=== PATIENT | female | born 1970 | race Caucasian/White ===

== ENCOUNTER → 2017-02-05 | Outpatient (REF) | payer BC ==
[~2017-02-05] MED LIST: ALBU17IN2 INH; CALC600T57 PO; CEFD1CAP8 PO; FLON1SPR; FOLI1TAB2 PO; IBUP200C PO; OMEP20CA3 PO; PERC5TAB6 PO; SING10TA32 PO; VITA100072 PO
[2017-02-05 12:24] LABS: ALBUMIN 3.5 GM/DL (3.2-5.2); ALBUMIN/GLOBULIN RATIO 1.21 (1.00-1.93); ALKALINE PHOSPHATASE 66 U/L (45-117); ALT/SGPT 25 U/L (12-78); ANION GAP 9 MEQ/L (8-16); AST/SGOT 14 U/L (15-37); BILIRUBIN,TOTAL 0.5 MG/DL (0.2-1.0); BLOOD UREA NITROGEN 11 MG/DL (7-18); CALCIUM LEVEL 8.3 MG/DL (8.5-10.1); CARBON DIOXIDE LEVEL 27 MEQ/L (21-32); CHLORIDE LEVEL 107 MEQ/L (98-107); CREATININE FOR GFR 0.71 MG/DL (0.55-1.02); GLOMERULAR FILTRATION RATE > 60.0 (>58); GLUCOSE, FASTING 99 MG/DL (70-105); POTASSIUM SERUM 4.1 MEQ/L (3.5-5.1); SODIUM LEVEL 143 MEQ/L (136-145); TOTAL PROTEIN 6.4 GM/DL (6.4-8.2)
[2017-02-05 12:25] LABS: VITAMIN B12 LEVEL 278 PG/ML (247-911)
[2017-02-05 13:56] LABS: PRETREATED FOLATE FOR RBCFOL 8.9 NG/ML
== END ==
LOC: M LABDRAW1 11:36
PROVIDERS: ATTEND Family Medicine
DX: E55.9 Vitamin D deficiency, unspecified (principal); R73.01 Impaired fasting glucose; E53.8 Deficiency of other specified B group vitamins

== ENCOUNTER → 2017-02-19 | Outpatient (CLI) | payer BC ==
--- NOTE | 2017-02-23 09:35 | SLEEPHOME ---
DATE OF STUDY: 02/19/2017 ORDERING PROVIDER: Juan Weber MD Diagnostic home sleep testing was performed due to concern for the obstructive sleep apnea syndrome. For testing, a NOX-T3 respiratory monitoring device was used. Continuous record was made of pulse, oxygen saturation, airflow, chest and abdominal strain, and body position. 10 hours and 59 minutes of data were reviewed. There were 9 hours and 46 minutes marked as time in bed. During the interval marked time in bed, there were 130 respiratory events identified of 10 seconds in duration or greater for a respiratory event index of 13.3. The events were primarily obstructive. Baseline heart rate 50 beats per minute. Pulse rate ranged 40-96. Baseline saturation was 92%. Lowest oxygen saturation recorded 81%. Testing was performed in both the supine and nonsupine positions. IMPRESSION: Abnormal home sleep test with repetitive respiratory events and oxygen desaturation to 81% with a respiratory event index of 13.3 is consistent with the obstructive sleep apnea syndrome. RECOMMENDATION: The patient should be encouraged to undergo formal sleep evaluation and in-laboratory pressure titration.
== END ==
LOC: M SLEEP HO 07:45
PROVIDERS: ATTEND Family Medicine
DX: G47.33 Obstructive sleep apnea (adult) (pediatric) (principal)

== ENCOUNTER → 2017-09-29 | Outpatient (CLI) | payer BC ==
[~2017-09-29] MED LIST changes: -FOLI1TAB2 PO; +FOLI1TAB4 PO; -IBUP200C PO; +IBUP200C10 PO; +PERC5TAB12 PO; -PERC5TAB6 PO
--- NOTE | 2017-09-29 20:20 | REP ---
Clinical: Thyroid nodule. Comparison: 09/18/2016. Technique: Real time boucher scale and color evaluation using linear high frequency transducer. Findings: Right thyroid lobe measures 4.3 x 1.2 x 1.2 cm and includes 8.7 x 8.2 x 6.8 mm isoechoic mid/lower pole nodule. Left lobe measures 4.2 x 1.2 x 1.1 cm and includes 3.8 x 3.4 x 3.2 mm lower pole hypoechoic nodule. Findings are essentially unchanged from prior examination. Impression: Solitary bilateral thyroid nodules similar to prior examination. Signed by Eduard Ochoa MD 09/29/2017 05:12 P
== END ==
LOC: M RAD 10:01
PROVIDERS: ATTEND Family Medicine
DX: E04.1 Nontoxic single thyroid nodule (principal)

== ENCOUNTER → 2018-02-15 | Outpatient (REF) | payer BC ==
[2018-02-15 10:49] LABS: BASO % 0.4 % (0.0-1.0); EOS # 0.1 10^3/uL (0.0-0.50); EOS % 2.1 % (0.0-3.0); HEMATOCRIT 37.1 % (36.0-47.0); HEMOGLOBIN 12.3 g/dl (12.0-15.5); IMMATURE GRANULOCYTE % 0.4 % (0-3.0); LYMPH # 1.7 10^3/uL (1.5-4.5); LYMPH % 31.5 % (24.0-44.0); MEAN CORPUSCULAR HEMOGLOBIN 30.5 pg (27.0-33.0); MEAN CORPUSCULAR HGB CONC 33.2 g/dl (32.0-36.5); MEAN CORPUSCULAR VOLUME 92.1 fl (80.0-96.0); MONO # 0.3 10^3/uL (0.0-0.8); MONO % 6.5 % (0.0-5.0); NEUTROPHILS # 3.1 10^3/uL (1.8-7.7); NEUTROPHILS % 59.1 % (36.0-66.0); PLATELET COUNT, AUTOMATED 191 10^3/uL (150-450); RED BLOOD COUNT 4.03 10^6/uL (4.00-5.40); RED CELL DISTRIBUTION WIDTH 12.3 % (11.5-14.5); WHITE BLOOD COUNT 5.2 10^3/uL (4.0-10.0)
[2018-02-15 11:11] LABS: ALBUMIN 3.7 GM/DL (3.2-5.2); ALBUMIN/GLOBULIN RATIO 1.23 (1.00-1.93); ALKALINE PHOSPHATASE 67 U/L (45-117); ALT/SGPT 48 U/L (12-78); ANION GAP 4 MEQ/L (8-16); AST/SGOT 67 U/L (7-37); BILIRUBIN,TOTAL 0.3 MG/DL (0.2-1.0); BLOOD UREA NITROGEN 16 MG/DL (7-18); CALCIUM LEVEL 8.7 MG/DL (8.5-10.1); CARBON DIOXIDE LEVEL 28 MEQ/L (21-32); CHLORIDE LEVEL 112 MEQ/L (98-107); CREATININE FOR GFR 0.71 MG/DL (0.55-1.30); FERRITIN 37 NG/ML (8-252); GLOMERULAR FILTRATION RATE > 60.0 (>58); GLUCOSE, FASTING 94 MG/DL (70-100); IRON (FE) 60 UG/DL (50-170); PERCENT SATURATION 21.1 % (13.2-45.0); POTASSIUM SERUM 4.3 MEQ/L (3.5-5.1); SODIUM LEVEL 144 MEQ/L (136-145); TOTAL IRON BINDING CAPACITY 285 UG/DL (250-450); TOTAL PROTEIN 6.7 GM/DL (6.4-8.2)
[2018-02-15 11:37] LABS: PTH INTACT 57.7 PG/ML (18.5-88.0); TOTAL 25(OH) VITAMIN D 100.6 NG/ML (30.0-100.0)
[2018-02-15 14:48] LABS: ESTIMATED AVERAGE GLUCOSE 94 MG/DL (60-110); HEMOGLOBIN A1c 4.9 %
[2018-02-17 00:08] LABS: INSULIN LEVEL 14.1 uIU/mL (2.6-24.9)
[2018-02-17 00:08] LABS: TISSUE TRANSGLUTAMINASE IgA <2 U/mL (0-3)
== END ==
LOC: M LABDRAW1 10:09
DX: E53.8 Deficiency of other specified B group vitamins (principal); E55.9 Vitamin D deficiency, unspecified; R73.01 Impaired fasting glucose
CPT/HCPCS: 83525

== ENCOUNTER → 2018-03-02 | Outpatient (CLI) | payer BC ==
[~2018-03-02] MED LIST changes: -ALBU17IN2 INH; -CALC600T57 PO; -CEFD1CAP8 PO; -FLON1SPR; -FOLI1TAB4 PO; +GASTROGRAFIN SOLUTION 30ML (Q9963) As Ordered; -IBUP200C10 PO; +ISOVUE-370 76% 100ML VIAL (Q9967) As Ordered; -OMEP20CA3 PO; -PERC5TAB12 PO; -SING10TA32 PO; -VITA100072 PO
== END ==
LOC: M RAD 16:31
DX: R10.30 Lower abdominal pain, unspecified (principal)

== ENCOUNTER → 2018-12-09 | Outpatient (CLI) | payer BC ==
[~2018-12-09] MED LIST changes: +ALBU17IN2 INH; +CALC600T57 PO; +CEFD1CAP8 PO; +FLON1SPR; +FOLI1TAB11 PO; -GASTROGRAFIN SOLUTION 30ML (Q9963) As Ordered; +IBUP200C25 PO; -ISOVUE-370 76% 100ML VIAL (Q9967) As Ordered; +OMEP20CA3 PO; +PERC5TAB12 PO; +SING10TA32 PO; +VITA100072 PO
[2018-12-09 07:48] LABS: APPEARANCE, URINE CLEAR (CLEAR); BACTERIA, URINE AUTO NEGATIVE (NEGATIVE); BILIRUBIN, URINE AUTO NEGATIVE (NEGATIVE); BLOOD, URINE BLOOD 2+ (NEGATIVE); COLOR, URINE YELLOW (YELLOW); GLUCOSE, URINE (UA) AUTO NEGATIVE (NEGATIVE); KETONE, URINE AUTO NEGATIVE (NEGATIVE); LEUKOCYTE ESTERASE, URINE AUTO TRACE (NEGATIVE); MUCUS, URINE SMALL (NEGATIVE); NITRITE, URINE AUTO NEGATIVE (NEGATIVE); PROTEIN, URINE AUTO NEGATIVE (NEGATIVE); RBC, URINE AUTO 28 /HPF (0-3); SPECIFIC GRAVITY URINE AUTO 1.015 (1.002-1.035); SQUAMOUS EPITHELIAL CELL UR AU 1 /HPF (0-6); UROBILINOGEN, URINE AUTO 0.2 mg/dL (0.0-2.0); WBC, URINE AUTO 1 /HPF (0-3)
[2018-12-09 07:55] LABS: HEMOGLOBIN A1c 4.9 %
[2018-12-09 08:03] LABS: ALBUMIN 3.8 GM/DL (3.2-5.2); ALT/SGPT 36 U/L (12-78); BILIRUBIN,TOTAL 0.6 MG/DL (0.2-1.0); BLOOD UREA NITROGEN 10 MG/DL (7-18); C REACTIVE PROTEIN QUANTITATIV 1.44 MG/DL (0.00-0.30); CALCIUM LEVEL 8.4 MG/DL (8.5-10.1); CARBON DIOXIDE LEVEL 26 MEQ/L (21-32); CHLORIDE LEVEL 107 MEQ/L (98-107); CHOLESTEROL LEVEL 165 MG/DL (<200); CHOLESTEROL RISK RATIO 2.844 (<5); CREATININE FOR GFR 0.64 MG/DL (0.55-1.30); GLOMERULAR FILTRATION RATE > 60.0 (>58); GLUCOSE, FASTING 95 MG/DL (70-100); HDL CHOLESTEROL 58 MG/DL (>40); LDL CHOLESTEROL 92 MG/DL (<100); NON-HDL-C 107 MG/DL; POTASSIUM SERUM 4.1 MEQ/L (3.5-5.1); SODIUM LEVEL 142 MEQ/L (136-145); TOTAL PROTEIN 7.1 GM/DL (6.4-8.2); TRIGLYCERIDES LEVEL 77 MG/DL (<150)
[2018-12-09 08:20] LABS: CREATININE, URINE 84.9 MG/DL; MALB URINE SIEMENS < 5.0 MG/L; MAU/CREAT RATIO 5.8 MCG/MG (0.0-30.0)
[2018-12-09 09:49] LABS: VITAMIN B12 LEVEL > 2000 PG/ML (247-911)
[2018-12-09 10:54] LABS: HEMATOCRIT 43.8 % (36.0-47.0)
== END ==
LOC: M LAB 06:53
PROVIDERS: ATTEND Family Medicine
DX: E78.5 Hyperlipidemia, unspecified (principal); E53.8 Deficiency of other specified B group vitamins; R73.01 Impaired fasting glucose

== ENCOUNTER 2018-12-30 08:15 | Day surgery (SDC) | payer BC ==
[~2018-12-30] VITALS: Ht 177.8 cm; Wt 105.7 kg
[~2018-12-30 08:15] MED LIST changes: +DICY10CA13 PO; +LIDOCAINE 2% INJ 100 MG/5 ML SDV (FOR ANES.) As Ordered ONE; +LORA-243 PO; +NS 1,000 ML IV ONE; +PROAAER10 INH; +PROBCAP14 PO; +PROPOFOL 200 MG/20 ML VIAL As Ordered ONE; +VITA50005 PO
[2018-12-30] MEDS ORDERED: PROPOFOL 200 MG/20 ML VIAL As Ordered ONE (09:28)
--- NOTE | 2018-12-30 09:50 | ROOR ---
Patient Name: Alta Larson Procedure Date: 12/30/2018 9:05 AM Date of : 1970 Age: 47 Room: [facility] Gender: Female Note Status: Finalized Procedure: Colonoscopy Indications: Screening in patient at increased risk: Family history of 1st-degree relative with colorectal cancer Providers: Yariel Richards MD Referring MD: Juan Weber MD Requesting Provider: Medicines: Monitored Anesthesia Care Complications: No immediate complications. Procedure: Pre-Anesthesia Assessment: - Prior to the procedure, a History and Physical was performed, and patient medications and allergies were reviewed. The patient is competent. The risks and benefits of the procedure and the sedation options and risks were discussed with the patient. All questions were answered and informed consent was obtained. Patient identification and proposed procedure were verified by the physician, the nurse and the anesthesiologist in the procedure room. Mental Status Examination: alert and oriented. Airway Examination: normal oropharyngeal airway and neck mobility. Respiratory Examination: clear to auscultation. CV Examination: normal. Prophylactic Antibiotics: The patient does not require prophylactic antibiotics. Prior Anticoagulants: The patient has taken no previous anticoagulant or antiplatelet agents. ASA Grade Assessment: II - A patient with mild systemic disease. After reviewing the risks and benefits, the patient was deemed in satisfactory condition to undergo the procedure. The anesthesia plan was to use monitored anesthesia care (MAC). Immediately prior to administration of medications, the patient was re-assessed for adequacy to receive sedatives. The heart rate, respiratory rate, oxygen saturations, blood pressure, adequacy of pulmonary ventilation, and response to care were monitored throughout the procedure. The physical status of the patient was re-assessed after the procedure. The Colonoscope was introduced through the anus and advanced to the terminal ileum, with identification of the appendiceal orifice and IC valve. The colonoscopy was performed without difficulty. The patient tolerated the procedure well. The quality of the bowel preparation was adequate to identify polyps 6 mm and larger in size and fair. The terminal ileum, ileocecal valve, appendiceal orifice, and rectum were photographed. Scope insertion time was 4 minutes. Scope withdrawal time was 10 minutes. The total duration of the procedure was 20 minutes. Findings: The perianal and digital rectal examinations were normal. The terminal ileum appeared normal. Two sessile polyps were found in the ascending colon. The polyps were 6 to 8 mm in size. These polyps were removed with a cold snare. Resection and retrieval were complete. Verification of patient identification for the specimen was done by the physician and nurse using the patient's name, date and medical record number. Estimated blood loss was minimal. Three sessile and semi-pedunculated polyps were found in the sigmoid colon. The polyps were 8 to 15 mm in size. These polyps were removed with a hot snare. Resection and retrieval were complete. To close a defect after polypectomy, two hemostatic clips were successfully placed. There was no bleeding at the end of the procedure. A few small-mouthed diverticula were found in the sigmoid colon. External and internal hemorrhoids were found during retroflexion. The hemorrhoids were medium-sized. Impression: - Preparation of the colon was fair. - The examined portion of the ileum was normal. - Two 6 to 8 mm polyps in the ascending colon, removed with a cold snare. Resected and retrieved. - Three 8 to 15 mm polyps in the sigmoid colon, removed with a hot snare. Resected and retrieved. Clips were placed. - Diverticulosis in the sigmoid colon. - External and internal hemorrhoids. Recommendation: - Patient has a contact number available for emergencies. The signs and symptoms of potential delayed complications were discussed with the patient. Return to normal activities tomorrow. Written discharge instructions were provided to the patient. - High fiber diet. - Continue present medications. - Await pathology results. - Repeat colonoscopy in 1 - 3 years for surveillance based on pathology results. - Based on the biopsy results you will receive a phone call from GI clinic in 2-3 weeks to review the pathology results AND/OR your results will be faxed to your Primary care physician. - Return to primary care physician. Yariel Richards MD Yariel Richards MD 12/30/2018 9:49:45 AM This report has been signed electronically. Number of Addenda: 0 Note Initiated On: 12/30/2018 9:05 AM Estimated Blood Loss: Estimated blood loss was minimal.
[2018-12-30 10:05] VITALS: BP 120/82
== END 2018-12-30 11:07 | disposition home or self-care (01) ==
LOC: M OPP 08:15
PROVIDERS: ATTEND Internal Medicine Gastroenterology
DX: Z12.11 Encounter for screening for malignant neoplasm of colon (principal); Z80.0 Family history of malignant neoplasm of digestive organs; K64.8 Other hemorrhoids; D12.2 Benign neoplasm of ascending colon; D12.5 Benign neoplasm of sigmoid colon; K57.30 Diverticulosis of large intestine without perforation or abscess without bleeding; Z88.0 Allergy status to penicillin; Z88.8 Allergy status to other drugs, medicaments and biological substances; G47.30 Sleep apnea, unspecified; Z80.3 Family history of malignant neoplasm of breast; Z83.79 Family history of other diseases of the digestive system

== ENCOUNTER → 2019-03-15 | Outpatient (CLI) | payer BC ==
[~2019-03-15] MED LIST changes: -LIDOCAINE 2% INJ 100 MG/5 ML SDV (FOR ANES.) As Ordered ONE; -NS 1,000 ML IV ONE; -PROPOFOL 200 MG/20 ML VIAL As Ordered ONE; +VITA100018 PO; -VITA100072 PO
--- NOTE | 2019-03-15 08:43 | REP ---
CT INTERNAL AUDITORY CANALS WITHOUT CONTRAST: HISTORY: Left otorrhea. The right internal auditory canal, cochlea, vestibule, and semicircular canals are normal in appearance. There is no carotid canal or jugular bulb dehiscence. The ossicles are normal in configuration and position. The scutum is intact. There are areas of dehiscence in the tegmen. The right middle ear cavity and mastoid air cells are clear. The patient is status post left mastoidectomy. The left internal auditory canal, cochlea, vestibule, and semicircular canals are normal in appearance. There is no carotid canal or jugular bulb dehiscence. A small remnant of the malleus is present. A small amount of soft tissue density is present in the epitympanum. This most likely represents scar tissue. The tegmen is intact. There is opacification of the residual left mastoid air cells. Minimal mucosal thickening is present in the ethmoid and left maxillary sinuses. The nasopharynx is normal in appearance. IMPRESSION: The patient is status post left mastoidectomy. Electronically Signed by Jeremías Nicholson MD 03/15/2019 09:06 A
== END ==
LOC: M RAD 06:50
PROVIDERS: ATTEND Otolaryngology
DX: H92.12 Otorrhea, left ear (principal)

== ENCOUNTER → 2019-03-29 | Outpatient (CLI) | payer BC ==
--- NOTE | 2019-04-02 14:29 | SLEEPHOME ---
DATE OF STUDY: 03/29/2019 ORDERED BY: GRETEL Topete Diagnostic home sleep testing was performed for evaluation of sleep apnea syndrome symptoms. For testing a nocturnal T3 respiratory monitoring device was used. Continuous record was made of pulse, oxygen saturation, airflow, chest and abdominal strain and body position. 9 hours and 30 minutes of data were reviewed. There were 8 hours and 40 minutes marked as time in bed. During the interval marked time in bed there were 50 respiratory events identified of 10 seconds in duration or greater for a respiratory event index of 5.8. The events were primarily obstructive. Baseline pulse rate 63, pulse rate ranged 46-97. Baseline saturation 92% saturations fell as low as 77% and the oxygen desaturation index was elevated 6.9. Testing was performed in both the supine and nonsupine positions. IMPRESSION: Abnormal home sleep testing with repetitive respiratory events and oxygen desaturations to 77% with a respiratory event index of 5.6 is consistent with the obstructive sleep apnea syndrome. RECOMMENDATION: The patient should be encouraged to undergo formal sleep evaluation. cc: Julee Matias PA-C
== END ==
LOC: M SLEEP HO 10:59
PROVIDERS: ATTEND Nurse Practitioner Family
DX: G47.30 Sleep apnea, unspecified (principal)

== ENCOUNTER → 2019-08-18 | Outpatient (CLI) | payer BC ==
[~2019-08-18] MED LIST changes: -OMEP20CA3 PO; +OMEP20CA4 PO
[2019-08-18 08:34] LABS: BASO % 0.4 % (0.0-1.0); EOS # 0.1 10^3/uL (0.0-0.5); EOS % 2.6 % (0.0-3.0); HEMATOCRIT 45.5 % (36.0-47.0); HEMOGLOBIN 14.8 g/dl (12.0-15.5); LYMPH # 1.9 10^3/uL (1.5-5.0); LYMPH % 34.1 % (24.0-44.0); MEAN CORPUSCULAR HEMOGLOBIN 30.8 pg (27.0-33.0); MEAN CORPUSCULAR HGB CONC 32.5 g/dl (32.0-36.5); MEAN CORPUSCULAR VOLUME 94.6 fl (80.0-96.0); MONO # 0.4 10^3/uL (0.0-0.8); MONO % 7.5 % (0.0-5.0); PLATELET COUNT, AUTOMATED 239 10^3/uL (150-450); RED BLOOD COUNT 4.81 10^6/uL (4.00-5.40); WHITE BLOOD COUNT 5.5 10^3/uL (4.0-10.0)
[2019-08-18 09:15] LABS: ALBUMIN 4.2 GM/DL (3.2-5.2); ALT/SGPT 24 U/L (12-78); BILIRUBIN,TOTAL 0.5 MG/DL (0.2-1.0); BLOOD UREA NITROGEN 22 MG/DL (7-18); CALCIUM LEVEL 9.5 MG/DL (8.5-10.1); CARBON DIOXIDE LEVEL 28 MEQ/L (21-32); CHLORIDE LEVEL 109 MEQ/L (98-107); CREATININE FOR GFR 0.76 MG/DL (0.55-1.30); FREE T4 0.94 NG/DL (0.76-1.46); GLOMERULAR FILTRATION RATE > 60.0 (>58); GLUCOSE, FASTING 88 MG/DL (70-100); POTASSIUM SERUM 4.7 MEQ/L (3.5-5.1); SODIUM LEVEL 142 MEQ/L (136-145); TOTAL PROTEIN 7.6 GM/DL (6.4-8.2)
[2019-08-18 10:34] LABS: TOTAL 25(OH) VITAMIN D 99.1 NG/ML (30.0-100.0)
== END ==
LOC: M LAB 07:19
PROVIDERS: ATTEND Family Medicine
DX: E55.9 Vitamin D deficiency, unspecified (principal); R73.01 Impaired fasting glucose; E04.1 Nontoxic single thyroid nodule

== ENCOUNTER → 2019-08-25 | Outpatient (CLI) | payer BC ==
--- NOTE | 2019-08-25 10:30 | REP ---
THYROID SONOGRAPHY: HISTORY: Thyroid nodule. COMPARISON SONOGRAPHY: September 29, 2017 SONOGRAPHIC FINDINGS: Thyroid isthmus is 0.4 cm thick. Sonographic dimensions of the right thyroid lobe are 4.6 x 1.2 x 1.4 cm. Left lobe dimensions are 4.4 x 1.4 x 1.2 cm. There is a complex essentially isoechoic nodule in the lower pole on the right measuring 1.1 x 0.9 x 0.9 cm. This is only slightly larger than measurements on September 29, 2017. A hypoechoic 0.5 cm nodule is seen in the lower pole on the left. This is essentially unchanged. No new nodule is seen. IMPRESSION: Small bilateral nodules, one on each side, as above. The right nodule is only very slightly larger than on the 2017 study. Electronically Signed by Jon Villanueva MD 08/25/2019 11:08 A
== END ==
LOC: M RAD 08:04
PROVIDERS: ATTEND Family Medicine
DX: E04.2 Nontoxic multinodular goiter (principal)

== ENCOUNTER → 2020-06-02 | Outpatient (CLI) | payer BC ==
[~2020-06-02] MED LIST changes: +OMEP1CAP73 PO; -OMEP20CA4 PO
== END ==
LOC: M LABSMTC 08:45
PROVIDERS: ATTEND Anesthesiology
DX: Z11.59 Encounter for screening for other viral diseases (principal)

== ENCOUNTER 2020-06-07 08:27 | Day surgery (SDC) | payer OTHER ==
[~2020-06-07] VITALS: Ht 177.8 cm; Wt 109.8 kg
[~2020-06-07 08:27] MED LIST changes: +NS 1,000 ML IV SCH
[2020-06-07] MEDS ORDERED: LIDOCAINE 2% 100MG/5ML SDV (FOR ANES.) As Ordered ONE (11:18)
[2020-06-07] MEDS ORDERED: propofoL 500 MG/50 ML VIAL As Ordered ONE (11:18)
[2020-06-07 11:50] VITALS: BP 113/67
--- NOTE | 2020-06-19 11:30 | ROOR ---
Patient Name: Alta Larson Procedure Date: 06/07/2020 7:46 AM Date of : 1970 Age: 49 Room: [facility] Gender: Female Note Status: Finalized Procedure: Colonoscopy Indications: High risk colon cancer surveillance: Personal history of colonic polyps Providers: Yariel Richards MD Referring MD: Juan Weber MD Requesting Provider: Medicines: Monitored Anesthesia Care Complications: No immediate complications. Procedure: Pre-Anesthesia Assessment: - Prior to the procedure, a History and Physical was performed, and patient medications and allergies were reviewed. The patient is competent. The risks and benefits of the procedure and the sedation options and risks were discussed with the patient. All questions were answered and informed consent was obtained. Patient identification and proposed procedure were verified by the physician, the nurse and the anesthesiologist in the procedure room. Mental Status Examination: alert and oriented. Airway Examination: normal oropharyngeal airway and neck mobility. Respiratory Examination: clear to auscultation. CV Examination: normal. Prophylactic Antibiotics: The patient does not require prophylactic antibiotics. Prior Anticoagulants: The patient has taken no previous anticoagulant or antiplatelet agents. ASA Grade Assessment: II - A patient with mild systemic disease. After reviewing the risks and benefits, the patient was deemed in satisfactory condition to undergo the procedure. The anesthesia plan was to use monitored anesthesia care (MAC). Immediately prior to administration of medications, the patient was re-assessed for adequacy to receive sedatives. The heart rate, respiratory rate, oxygen saturations, blood pressure, adequacy of pulmonary ventilation, and response to care were monitored throughout the procedure. The physical status of the patient was re-assessed after the procedure. The Colonoscope was introduced through the anus and advanced to the terminal ileum, with identification of the appendiceal orifice and IC valve. The colonoscopy was performed without difficulty. The patient tolerated the procedure well. The quality of the bowel preparation was good. The terminal ileum, ileocecal valve, appendiceal orifice, and rectum were photographed. Scope insertion time was 3 minutes. Scope withdrawal time was 9 minutes. The total duration of the procedure was 12 minutes. Findings: The perianal and digital rectal examinations were normal. The terminal ileum appeared normal. A few small and large-mouthed diverticula were found from sigmoid to descending colon. There was no evidence of diverticular bleeding. Non-bleeding external and internal hemorrhoids were found during retroflexion. The hemorrhoids were medium-sized. There is no endoscopic evidence of polyps in the entire colon. Impression: - The examined portion of the ileum was normal. - Moderate diverticulosis from sigmoid to descending colon. There was no evidence of diverticular bleeding. - Non-bleeding external and internal hemorrhoids. - No specimens collected. Recommendation: - Patient has a contact number available for emergencies. The signs and symptoms of potential delayed complications were discussed with the patient. Return to normal activities tomorrow. Written discharge instructions were provided to the patient. - High fiber diet. - Continue present medications. - Use fiber, for example Citrucel, Fibercon, Konsyl or Metamucil. - Repeat colonoscopy in 5 years due to personal history of colon polyps in past Colonoscopy. - Return to GI clinic in 5 years. - Return to primary care physician. Yariel Richards MD Yariel Richards MD 06/07/2020 11:35:45 AM Number of Addenda: 0 Note Initiated On: 06/07/2020 7:46 AM Estimated Blood Loss: Estimated blood loss was minimal.
== END 2020-06-07 12:00 | disposition home or self-care (01) ==
LOC: M OPP 08:27
PROVIDERS: ATTEND Internal Medicine Gastroenterology
DX: Z12.11 Encounter for screening for malignant neoplasm of colon (principal); Z86.010 Personal history of colon polyps; K64.8 Other hemorrhoids; K57.30 Diverticulosis of large intestine without perforation or abscess without bleeding; G47.30 Sleep apnea, unspecified; K21.9 Gastro-esophageal reflux disease without esophagitis; Z83.79 Family history of other diseases of the digestive system; Z88.0 Allergy status to penicillin

== ENCOUNTER → 2020-10-30 | Outpatient (CLI) | payer OTHER ==
[~2020-10-30] MED LIST changes: -NS 1,000 ML IV SCH
--- NOTE | 2020-10-31 10:44 | REP ---
INDICATION: THYROID NODULE COMPARISON: 08/25/2019 TECHNIQUE: [place] scale and color evaluation of the thyroid gland using the linear high frequency transducer. FINDINGS: The thyroid gland is normal in contour, shape, size, and echogenicity. No nodule/mass or cystic abnormalities are appreciated. Right thyroid lobe measures 4.8 x 1.4 x 1.4 cm and includes 1.5 x 1.2 x 1.3 cm complex primarily isodense midpole nodule.. Isthmus measures 3.0 mm in width. Left thyroid lobe measures 4.7 x 1.4 x 1.1 cm and includes 5.4 x 5.1 x 8.6 mm hypoechoic lower pole nodule. IMPRESSION: Bilateral nodules as described above are similar in morphology to prior examination with minimal increased size suggested. <Electronically signed by Eduard Ochoa > 10/31/20 [id number]
== END ==
LOC: M RAD 15:16
PROVIDERS: ATTEND Family Medicine
DX: E04.2 Nontoxic multinodular goiter (principal)

== ENCOUNTER → 2021-03-19 | Outpatient (REF) | payer OTHER ==
[2021-03-19 12:06] LABS: BASO % 0.5 % (0.0-1.0); EOS # 0.2 10^3/uL (0.0-0.5); EOS % 2.8 % (0.0-3.0); HEMATOCRIT 40.5 % (36.0-47.0); HEMOGLOBIN 13.5 g/dl (12.0-15.5); LYMPH # 1.6 10^3/uL (1.5-5.0); LYMPH % 28.1 % (24.0-44.0); MEAN CORPUSCULAR HEMOGLOBIN 29.9 pg (27.0-33.0); MEAN CORPUSCULAR HGB CONC 33.3 g/dl (32.0-36.5); MEAN CORPUSCULAR VOLUME 89.6 fl (80.0-96.0); MONO # 0.5 10^3/uL (0.0-0.8); MONO % 8.1 % (2.0-8.0); NEUTROPHILS # 3.4 10^3/uL (1.5-8.5); NEUTROPHILS % 60.1 % (36.0-66.0); PLATELET COUNT, AUTOMATED 242 10^3/uL (150-450); RED BLOOD COUNT 4.52 10^6/uL (4.00-5.40); WHITE BLOOD COUNT 5.7 10^3/uL (4.0-10.0)
[2021-03-19 12:07] LABS: HEMATOCRIT 40.2 % (36.0-47.0)
[2021-03-19 18:40] LABS: ALBUMIN 3.7 GM/DL (3.2-5.2); ALT/SGPT 31 U/L (12-78); BILIRUBIN,TOTAL 0.5 MG/DL (0.2-1.0); BLOOD UREA NITROGEN 14 MG/DL (7-18); C REACTIVE PROTEIN QUANTITATIV 0.48 MG/DL (0.00-0.30); CALCIUM LEVEL 8.7 MG/DL (8.5-10.1); CARBON DIOXIDE LEVEL 27 MEQ/L (21-32); CHLORIDE LEVEL 108 MEQ/L (98-107); CHOLESTEROL LEVEL 193 MG/DL (<200); CREATININE FOR GFR 0.67 MG/DL (0.55-1.30); GLOMERULAR FILTRATION RATE > 60.0 (>51); GLUCOSE, FASTING 89 MG/DL (70-100); HDL CHOLESTEROL 48 MG/DL (>40); LDL CHOLESTEROL 121 MG/DL (<100); NON-HDL-C 145 MG/DL; POTASSIUM SERUM 3.8 MEQ/L (3.5-5.1); SODIUM LEVEL 144 MEQ/L (136-145); TOTAL 25(OH) VITAMIN D 57.7 NG/ML (30.0-100.0); TOTAL PROTEIN 6.9 GM/DL (6.4-8.2); TRIGLYCERIDES LEVEL 120 MG/DL (<150)
[2021-03-19 18:41] LABS: PTH INTACT 64.3 PG/ML (18.5-88.0); VITAMIN B12 LEVEL 1113 PG/ML (247-911)
[2021-03-19 19:23] LABS: MALB URINE SIEMENS 11.9 MG/L; MAU/CREAT RATIO 5.7 MCG/MG (0.0-30.0)
[2021-03-20 11:52] LABS: ALBUMIN 4.11 GM/DL (3.29-5.55); ALBUMIN % 59.6 % (55.8-66.1); ALPHA-1-GLOBULIN % 4.4 % (2.9-4.9); ALPHA-2-GLOBULINS 0.88 GM/DL (0.42-0.99); ALPHA-2-GLOBULINS % 12.8 % (7.1-11.8); BETA-1-GLOBULINS % 5.8 % (4.7-7.2); BETA-2-GLOBULINS % 5.8 % (3.2-6.5); GAMMA GLOBULIN % 11.6 % (11.1-18.8)
[2021-03-21 00:08] LABS: ANA (HEP2) Negative (.); CYCLIC CITRULLINATED PEPTIDE 5 units (0-19); INSULIN LEVEL 13.2 uIU/mL (2.6-24.9)
== END ==
LOC: M SFHCPLAZ 07:55
PROVIDERS: ATTEND Family Medicine
DX: E78.5 Hyperlipidemia, unspecified (principal); E53.8 Deficiency of other specified B group vitamins; E55.9 Vitamin D deficiency, unspecified; R73.01 Impaired fasting glucose; M17.0 Bilateral primary osteoarthritis of knee

== ENCOUNTER → 2021-08-04 | Outpatient (CLI) | payer OTHER ==
[2021-08-04 09:21] LABS: BASO % 0.5 % (0.0-1.0); EOS # 0.2 10^3/uL (0.0-0.5); EOS % 2.7 % (0.0-3.0); HEMATOCRIT 36.9 % (36.0-47.0); HEMOGLOBIN 12.1 g/dl (12.0-15.5); LYMPH # 1.9 10^3/uL (1.5-5.0); LYMPH % 32.8 % (24.0-44.0); MEAN CORPUSCULAR HEMOGLOBIN 29.5 pg (27.0-33.0); MEAN CORPUSCULAR HGB CONC 32.8 g/dl (32.0-36.5); MONO # 0.5 10^3/uL (0.0-0.8); MONO % 7.9 % (2.0-8.0); NEUTROPHILS # 3.3 10^3/uL (1.5-8.5); NEUTROPHILS % 55.8 % (36.0-66.0); PLATELET COUNT, AUTOMATED 225 10^3/uL (150-450); WHITE BLOOD COUNT 5.9 10^3/uL (4.0-10.0)
[2021-08-04 09:57] LABS: ALBUMIN 3.4 GM/DL (3.2-5.2); ALT/SGPT 27 U/L (12-78); BILIRUBIN,TOTAL 0.3 MG/DL (0.2-1.0); BLOOD UREA NITROGEN 16 MG/DL (7-18); CARBON DIOXIDE LEVEL 27 MEQ/L (21-32); CHLORIDE LEVEL 112 MEQ/L (98-107); FREE T4 0.96 NG/DL (0.76-1.46); GLOMERULAR FILTRATION RATE > 60.0 (>51); GLUCOSE, FASTING 96 MG/DL (70-100); POTASSIUM SERUM 4.3 MEQ/L (3.5-5.1); SODIUM LEVEL 144 MEQ/L (136-145); THYROID PEROXIDASE ANTIBODY < 28.0 U/ML (<60.0); TOTAL PROTEIN 6.6 GM/DL (6.4-8.2)
[2021-08-04 10:22] LABS: HEMOGLOBIN A1c 5.3 %
[2021-08-04 10:36] LABS: VITAMIN B12 LEVEL 492 PG/ML (247-911)
[2021-08-06 10:25] LABS: ALBUMIN 3.88 GM/DL (3.29-5.55); ALBUMIN % 58.8 % (55.8-66.1); ALPHA-1-GLOBULIN % 4.5 % (2.9-4.9); ALPHA-2-GLOBULINS 0.81 GM/DL (0.42-0.99); ALPHA-2-GLOBULINS % 12.3 % (7.1-11.8)
[2021-08-06 10:26] LABS: BETA-1-GLOBULINS 0.36 GM/DL (0.28-0.60); BETA-1-GLOBULINS % 5.4 % (4.7-7.2); GAMMA GLOBULINS 0.86 GM/DL (0.65-1.58)
== END ==
LOC: M LAB 07:11
PROVIDERS: ATTEND Family Medicine
DX: E04.1 Nontoxic single thyroid nodule (principal); R73.01 Impaired fasting glucose; E53.8 Deficiency of other specified B group vitamins

== ENCOUNTER → 2021-11-21 | Outpatient (CLI) | payer OTHER ==
[~2021-11-21] MED LIST changes: -CEFD1CAP8 PO; +CEFD300C41 PO
== END ==
LOC: M WHC 07:42
PROVIDERS: ATTEND Family Medicine
DX: E28.39 Other primary ovarian failure (principal); M85.88 Other specified disorders of bone density and structure, other site; M85.851 Other specified disorders of bone density and structure, right thigh; M85.852 Other specified disorders of bone density and structure, left thigh

== ENCOUNTER → 2022-02-25 | Outpatient (CLI) | payer OTHER ==
[2022-02-25 10:58] LABS: BASO % 0.3 % (0.0-1.0); EOS # 0.1 10^3/uL (0.0-0.5); EOS % 1.2 % (0.0-3.0); HEMATOCRIT 39.8 % (36.0-47.0); LYMPH # 1.8 10^3/uL (1.5-5.0); LYMPH % 31.6 % (24.0-44.0); MEAN CORPUSCULAR HEMOGLOBIN 29.2 pg (27.0-33.0); MEAN CORPUSCULAR HGB CONC 32.7 g/dl (32.0-36.5); MEAN CORPUSCULAR VOLUME 89.4 fl (80.0-96.0); MONO # 0.4 10^3/uL (0.0-0.8); MONO % 7.7 % (2.0-8.0); NEUTROPHILS # 3.4 10^3/uL (1.5-8.5); NEUTROPHILS % 58.9 % (36.0-66.0); PLATELET COUNT, AUTOMATED 232 10^3/uL (150-450); RED BLOOD COUNT 4.45 10^6/uL (4.00-5.40); WHITE BLOOD COUNT 5.7 10^3/uL (4.0-10.0)
[2022-02-25 11:06] LABS: ALBUMIN 3.7 GM/DL (3.2-5.2); ALT/SGPT 34 U/L (12-78); BILIRUBIN,TOTAL 0.5 MG/DL (0.2-1.0); BLOOD UREA NITROGEN 12 MG/DL (7-18); C REACTIVE PROTEIN QUANTITATIV 0.91 MG/DL (0.00-0.30); CALCIUM LEVEL 9.2 MG/DL (8.5-10.1); CARBON DIOXIDE LEVEL 29 MEQ/L (21-32); CHLORIDE LEVEL 111 MEQ/L (98-107); CHOLESTEROL LEVEL 209 MG/DL (<200); CHOLESTEROL RISK RATIO 4.265 (<5); CREATININE FOR GFR 0.78 MG/DL (0.55-1.30); FERRITIN 49 NG/ML (8-252); GLOMERULAR FILTRATION RATE > 60.0 (>51); GLUCOSE, FASTING 108 MG/DL (70-100); HDL CHOLESTEROL 49 MG/DL (>40); LDL CHOLESTEROL 136 MG/DL (<100); NON-HDL-C 160 MG/DL; POTASSIUM SERUM 4.6 MEQ/L (3.5-5.1); SODIUM LEVEL 145 MEQ/L (136-145); TRIGLYCERIDES LEVEL 119 MG/DL (<150)
[2022-02-25 11:29] LABS: HEMOGLOBIN A1c 5.2 %
== END ==
LOC: M PLALAB 06:54
PROVIDERS: ATTEND Family Medicine
DX: R73.01 Impaired fasting glucose (principal); E78.5 Hyperlipidemia, unspecified; D53.8 Other specified nutritional anemias

== ENCOUNTER → 2022-02-27 | Outpatient (CLI) | payer OTHER | LOC: M PLAIMG 11:14 → M PLALAB 11:14 | PROVIDERS: ATTEND Family Medicine | DX: M15.9 Polyosteoarthritis, unspecified (principal) ==

== ENCOUNTER → 2022-05-01 | Outpatient (CLI) | payer OTHER ==
[2022-05-01 11:34] LABS: C REACTIVE PROTEIN QUANTITATIV 1.02 MG/DL (0.00-0.30); RHEUMATOID FACTOR QUANT < 10.0 IU/ML (<15.0)
[2022-05-05 00:07] LABS: ANA (HEP2) Negative (.); CYCLIC CITRULLINATED PEPTIDE 7 units (0-19)
== END ==
LOC: M PLALAB 07:19
PROVIDERS: ATTEND Family Medicine
DX: M15.9 Polyosteoarthritis, unspecified (principal)

== ENCOUNTER → 2022-06-25 | Outpatient (CLI) | payer OTHER ==
[2022-06-25 17:26] LABS: HEMATOCRIT 41.8 % (36.0-47.0)
[2022-06-25 18:24] LABS: ALBUMIN 3.9 GM/DL (3.2-5.2); ALT/SGPT 48 U/L (12-78); BILIRUBIN,TOTAL 0.5 MG/DL (0.2-1.0); BLOOD UREA NITROGEN 11 MG/DL (7-18); CALCIUM LEVEL 9.3 MG/DL (8.5-10.1); CARBON DIOXIDE LEVEL 27 MEQ/L (21-32); CHLORIDE LEVEL 108 MEQ/L (98-107); CREATININE FOR GFR 0.67 MG/DL (0.55-1.30); GLOMERULAR FILTRATION RATE > 60.0 (>51); GLUCOSE, FASTING 97 MG/DL (70-100); POTASSIUM SERUM 4.5 MEQ/L (3.5-5.1); SODIUM LEVEL 139 MEQ/L (136-145); TOTAL PROTEIN 7.3 GM/DL (6.4-8.2)
[2022-06-25 18:46] LABS: HEMOGLOBIN A1c 5.4 %
[2022-06-25 18:59] LABS: TOTAL 25(OH) VITAMIN D 80.1 NG/ML (30.0-100.0)
[2022-06-25 19:00] LABS: PTH INTACT 72.1 PG/ML (18.5-88.0); VITAMIN B12 LEVEL 689 PG/ML (247-911)
[2022-06-27 12:08] LABS: H PYLORI SERUM QUANT IgG ABY 0.25 (0.00-0.79); INSULIN LEVEL 28.2 uIU/mL (2.6-24.9)
[2022-06-30 15:34] LABS: NT-PRO BNP 27 PG/ML (<125)
== END ==
LOC: M PLALAB 15:47
PROVIDERS: ATTEND Advanced Practice Midwife
DX: R73.01 Impaired fasting glucose (principal); K21.9 Gastro-esophageal reflux disease without esophagitis; E53.8 Deficiency of other specified B group vitamins; E55.9 Vitamin D deficiency, unspecified

== ENCOUNTER → 2022-08-27 | Outpatient (CLI) | payer OTHER ==
[2022-08-27 16:57] LABS: FOLLICLE STIMULATING HORMONE 41.1 mIU/ML; FREE T4 1.02 NG/DL (0.89-1.76); LUTEINIZING HORMONE 21.7 mIU/ML; THYROID STIMULATING HORMONE 1.301 uIU/ML (0.55-4.78)
== END ==
LOC: M PLALAB 09:26
PROVIDERS: ATTEND Physician Assistant
DX: R73.01 Impaired fasting glucose (principal); R23.2 Flushing; R53.83 Other fatigue

== ENCOUNTER → 2022-11-10 | Outpatient (REF) | payer OTHER ==
[2022-11-10 22:41] LABS: APPEARANCE, URINE MANUAL CLEAR (CLEAR); BILIRUBIN, URINE MANUAL NEGATIVE (NEGATIVE); BLOOD URINE MANUAL NEGATIVE (NEGATIVE); COLOR, URINE MANUAL YELLOW (YELLOW); GLUCOSE, URINE (UA) MANUAL NEGATIVE (NEGATIVE); KETONE, URINE MANUAL NEGATIVE (NEGATIVE); LEUKOCYTE ESTERASE, URINE MAN NEGATIVE (NEGATIVE); NITRITE, URINE MANUAL NEGATIVE (NEGATIVE); PROTEIN, URINE MANUAL NEGATIVE (NEGATIVE); UROBILINOGEN, URINE MANUAL NORMAL (NORMAL)
== END ==
LOC: M LAB REF 22:18
PROVIDERS: ATTEND Physician Assistant Medical
DX: N39.0 Urinary tract infection, site not specified (principal)

== ENCOUNTER → 2022-12-18 | Outpatient (CLI) | payer OTHER ==
[~2022-12-18] MED LIST changes: +MONT-5 PO; -SING10TA32 PO
[2022-12-18 11:45] LABS: CREATININE, URINE 120.4 MG/DL; MAU/CREAT RATIO 4.1 MCG/MG (0.0-30.0)
[2022-12-18 11:46] LABS: ALBUMIN 3.6 G/DL (3.2-5.2); ALKALINE PHOSPHATASE 76 U/L (46-116); ALT/SGPT 25 U/L (7.0-40); AST/SGOT 20 U/L (<34); BILIRUBIN,TOTAL 0.3 MG/DL (0.3-1.2); BLOOD UREA NITROGEN 14 MG/DL (9-23); CALCIUM LEVEL 8.7 MG/DL (8.5-10.1); CARBON DIOXIDE LEVEL 26 MMOL/L (20-31); CHLORIDE LEVEL 111 MMOL/L (98-107); CHOLESTEROL LEVEL 128 MG/DL (<200); CHOLESTEROL RISK RATIO 3.46 (<5); CREATININE FOR GFR 0.55 MG/DL (0.55-1.30); GLOMERULAR FILTRATION RATE > 60.0 (>51); GLUCOSE, FASTING 88 MG/DL (60-100); HDL CHOLESTEROL 36.9 MG/DL (>40); LDL CHOLESTEROL 78.3 MG/DL (<100); NON-HDL-C 91.1 MG/DL; POTASSIUM SERUM 3.9 MMOL/L (3.5-5.1); SODIUM LEVEL 143 MMOL/L (136-145); TOTAL PROTEIN 6.3 G/DL (5.7-8.2); TRIGLYCERIDES LEVEL 64 MG/DL (<150)
[2022-12-19 08:09] LABS: APOLIPOPROTEIN B/A-1 RATIO 0.7 ratio (0.0-0.6); INSULIN LEVEL 13.9 uIU/mL (2.6-24.9)
== END ==
LOC: M PLALAB 07:30
PROVIDERS: ATTEND Family Medicine
DX: R73.01 Impaired fasting glucose (principal)

== ENCOUNTER → 2023-01-25 | Outpatient (CLI) | payer OTHER | LOC: M RAD 15:57 | PROVIDERS: ATTEND Family Medicine | DX: E04.2 Nontoxic multinodular goiter (principal) ==

== ENCOUNTER → 2023-02-05 | Outpatient (CLI) | payer OTHER ==
[2023-02-05 17:27] LABS: BASO % 0.4 % (0.0-1.0); EOS # 0.2 10^3/uL (0.0-0.5); EOS % 2.7 % (0.0-3.0); HEMATOCRIT 42.9 % (36.0-47.0); HEMOGLOBIN 14.1 g/dl (12.0-15.5); LYMPH # 2.9 10^3/uL (1.5-5.0); LYMPH % 32.1 % (24.0-44.0); MEAN CORPUSCULAR HEMOGLOBIN 29.6 pg (27.0-33.0); MEAN CORPUSCULAR HGB CONC 32.9 g/dl (32.0-36.5); MEAN CORPUSCULAR VOLUME 89.9 fl (80.0-96.0); MONO # 0.6 10^3/uL (0.0-0.8); MONO % 7.2 % (2.0-8.0); NEUTROPHILS # 5.1 10^3/uL (1.5-8.5); NEUTROPHILS % 57.4 % (36.0-66.0); PLATELET COUNT, AUTOMATED 264 10^3/uL (150-450); RED BLOOD COUNT 4.77 10^6/uL (4.00-5.40); WHITE BLOOD COUNT 8.9 10^3/uL (4.0-10.0)
[2023-02-05 17:54] LABS: ALBUMIN 3.9 G/DL (3.2-5.2); ALKALINE PHOSPHATASE 86 U/L (46-116); ALT/SGPT 38 U/L (7.0-40); AST/SGOT 24 U/L (<34); BILIRUBIN,TOTAL 0.4 MG/DL (0.3-1.2); BLOOD UREA NITROGEN 20 MG/DL (9-23); CALCIUM LEVEL 9.5 MG/DL (8.5-10.1); CARBON DIOXIDE LEVEL 26 MMOL/L (20-31); CHLORIDE LEVEL 106 MMOL/L (98-107); CREATININE FOR GFR 0.69 MG/DL (0.55-1.30); FERRITIN 34.5 NG/ML (7.3-270.7); FOLATE > 24.00 NG/ML (>5.4); GLOMERULAR FILTRATION RATE > 60.0 (>51); GLUCOSE, FASTING 95 MG/DL (60-100); MAGNESIUM LEVEL 1.6 MG/DL (1.8-2.4); POTASSIUM SERUM 4.4 MMOL/L (3.5-5.1); SODIUM LEVEL 141 MMOL/L (136-145); TOTAL PROTEIN 7.3 G/DL (5.7-8.2)
[2023-02-05 17:55] LABS: TOTAL 25(OH) VITAMIN D 96.2 NG/ML (20.0-100.0)
[2023-02-05 17:56] LABS: VITAMIN B12 LEVEL 757 PG/ML (211-911)
== END ==
LOC: M PLALAB 16:42
PROVIDERS: ATTEND Physician Assistant
DX: E53.8 Deficiency of other specified B group vitamins (principal); E55.9 Vitamin D deficiency, unspecified; R20.0 Anesthesia of skin

== ENCOUNTER → 2023-03-24 | Outpatient (REF) | payer OTHER ==
[2023-03-24 12:48] LABS: APPEARANCE, URINE CLEAR (CLEAR); BACTERIA, URINE AUTO NEGATIVE (NEGATIVE); BILIRUBIN, URINE AUTO NEGATIVE (NEGATIVE); BLOOD, URINE BLOOD 2+ (NEGATIVE); COLOR, URINE AMBER (YELLOW); GLUCOSE, URINE (UA) AUTO NEGATIVE (NEGATIVE); KETONE, URINE AUTO NEGATIVE (NEGATIVE); LEUKOCYTE ESTERASE, URINE AUTO 2+ (NEGATIVE); NITRITE, URINE AUTO POSITIVE (NEGATIVE); PROTEIN, URINE AUTO NEGATIVE (NEGATIVE); RBC, URINE AUTO 1 /HPF (0-3); SPECIFIC GRAVITY URINE AUTO 1.004 (1.002-1.035); SQUAMOUS EPITHELIAL CELL UR AU 0 /HPF (0-6); WBC, URINE AUTO 95 /HPF (0-3)
== END ==
LOC: M LAB REF 12:04
PROVIDERS: ATTEND Physician Assistant
DX: N39.0 Urinary tract infection, site not specified (principal)

== ENCOUNTER → 2023-04-16 | Outpatient (REF) | payer OTHER ==
[2023-04-16 13:12] LABS: APPEARANCE, URINE CLOUDY (CLEAR); BACTERIA, URINE AUTO NEGATIVE (NEGATIVE); BILIRUBIN, URINE AUTO NEGATIVE (NEGATIVE); BLOOD, URINE BLOOD 3+ (NEGATIVE); COLOR, URINE YELLOW (YELLOW); GLUCOSE, URINE (UA) AUTO NEGATIVE (NEGATIVE); KETONE, URINE AUTO NEGATIVE (NEGATIVE); LEUKOCYTE ESTERASE, URINE AUTO 3+ (NEGATIVE); NITRITE, URINE AUTO NEGATIVE (NEGATIVE); PROTEIN, URINE AUTO 1+ mg/dL (NEGATIVE); RBC, URINE AUTO 167 /HPF (0-3); SPECIFIC GRAVITY URINE AUTO 1.011 (1.002-1.035); SQUAMOUS EPITHELIAL CELL UR AU 0 /HPF (0-6); UROBILINOGEN, URINE AUTO 0.2 mg/dL (0.0-2.0); WBC, URINE AUTO TNTC /HPF (0-3)
== END ==
LOC: M LAB REF 12:22
PROVIDERS: ATTEND Physician Assistant
DX: N39.0 Urinary tract infection, site not specified (principal)

== ENCOUNTER → 2023-04-19 | Outpatient (CLI) | payer OTHER ==
[~2023-04-19] MED LIST changes: +DICY-61 PO; -DICY10CA13 PO
[2023-04-19 14:50] LABS: BASO % 0.6 % (0.0-1.0); EOS # 0.2 10^3/uL (0.0-0.5); EOS % 3.7 % (0.0-3.0); HEMATOCRIT 38.6 % (36.0-47.0); HEMOGLOBIN 12.6 g/dl (12.0-15.5); LYMPH # 1.5 10^3/uL (1.5-5.0); LYMPH % 28.3 % (24.0-44.0); MEAN CORPUSCULAR HEMOGLOBIN 29.4 pg (27.0-33.0); MEAN CORPUSCULAR HGB CONC 32.6 g/dl (32.0-36.5); MONO # 0.5 10^3/uL (0.0-0.8); MONO % 9.6 % (2.0-8.0); NEUTROPHILS # 2.9 10^3/uL (1.5-8.5); PLATELET COUNT, AUTOMATED 204 10^3/uL (150-450); RED BLOOD COUNT 4.29 10^6/uL (4.00-5.40); WHITE BLOOD COUNT 5.1 10^3/uL (4.0-10.0)
[2023-04-19 15:02] LABS: APPEARANCE, URINE CLEAR (CLEAR); BACTERIA, URINE AUTO NEGATIVE (NEGATIVE); BILIRUBIN, URINE AUTO NEGATIVE (NEGATIVE); BLOOD, URINE BLOOD NEGATIVE (NEGATIVE); COLOR, URINE YELLOW (YELLOW); GLUCOSE, URINE (UA) AUTO NEGATIVE (NEGATIVE); KETONE, URINE AUTO NEGATIVE (NEGATIVE); LEUKOCYTE ESTERASE, URINE AUTO NEGATIVE (NEGATIVE); MUCUS, URINE SMALL (NEGATIVE); NITRITE, URINE AUTO NEGATIVE (NEGATIVE); PROTEIN, URINE AUTO NEGATIVE (NEGATIVE); RBC, URINE AUTO 0 /HPF (0-3); SPECIFIC GRAVITY URINE AUTO 1.015 (1.002-1.035); SQUAMOUS EPITHELIAL CELL UR AU 0 /HPF (0-6); WBC, URINE AUTO 2 /HPF (0-3)
[2023-04-20 14:11] LABS: TISSUE TRANSGLUTAMINASE IgA <2 U/mL (0-3)
== END ==
LOC: M PLALAB 11:24
PROVIDERS: ATTEND Family Medicine
DX: D50.9 Iron deficiency anemia, unspecified (principal); N39.0 Urinary tract infection, site not specified

== ENCOUNTER → 2023-05-25 | Outpatient (REF) | payer OTHER | LOC: M SFHCPLAZ 14:05 | PROVIDERS: ATTEND Family Medicine | DX: N30.00 Acute cystitis without hematuria (principal) ==

== ENCOUNTER → 2023-06-29 | Outpatient (REF) | payer OTHER ==
[2023-06-29 20:33] LABS: APPEARANCE, URINE HAZY (CLEAR); BACTERIA, URINE AUTO NEGATIVE (NEGATIVE); BILIRUBIN, URINE AUTO NEGATIVE (NEGATIVE); BLOOD, URINE BLOOD 2+ (NEGATIVE); COLOR, URINE STRAW (YELLOW); GLUCOSE, URINE (UA) AUTO NEGATIVE (NEGATIVE); KETONE, URINE AUTO NEGATIVE (NEGATIVE); LEUKOCYTE ESTERASE, URINE AUTO 3+ (NEGATIVE); NITRITE, URINE AUTO NEGATIVE (NEGATIVE); PROTEIN, URINE AUTO NEGATIVE (NEGATIVE); RBC, URINE AUTO 6 /HPF (0-3); SPECIFIC GRAVITY URINE AUTO 1.009 (1.002-1.035); SQUAMOUS EPITHELIAL CELL UR AU 0 /HPF (0-6); UROBILINOGEN, URINE AUTO 0.2 mg/dL (0.0-2.0); WBC, URINE AUTO 167 /HPF (0-3)
== END ==
LOC: M SFHCPLAZ 19:28
PROVIDERS: ATTEND Internal Medicine Hematology
DX: N30.00 Acute cystitis without hematuria (principal)

== ENCOUNTER → 2023-07-02 | Outpatient (CLI) | payer OTHER | LOC: M PLARAD 12:55 | PROVIDERS: ATTEND Student in an Organized Health Care Education/Training Program | DX: M47.896 Other spondylosis, lumbar region (principal); M47.897 Other spondylosis, lumbosacral region; M54.50 Low back pain, unspecified ==

== ENCOUNTER → 2023-07-16 | Outpatient (CLI) | payer OTHER ==
[2023-07-16 16:44] LABS: BLOOD UREA NITROGEN 16 MG/DL (9-23); CREATININE FOR GFR 0.62 MG/DL (0.55-1.30); GLOMERULAR FILTRATION RATE > 60.0 (>51)
== END ==
LOC: M PLALAB 13:01
PROVIDERS: ATTEND Physical Medicine & Rehabilitation
DX: M48.062 Spinal stenosis, lumbar region with neurogenic claudication (principal); M47.896 Other spondylosis, lumbar region; M51.36 Other intervertebral disc degeneration, lumbar region

== ENCOUNTER → 2023-08-30 | Outpatient (CLI) | payer OTHER ==
[~2023-08-30] MED LIST changes: -CEFD300C41 PO; +CEFD300C42 PO; +PROHANCE 279.3MG/ML 15ML VIAL As Ordered ONE; +PROHANCE 279.3MG/ML 5ML VIAL As Ordered ONE
== END ==
LOC: M RAD 15:47
PROVIDERS: ATTEND Physical Medicine & Rehabilitation
DX: M47.897 Other spondylosis, lumbosacral region (principal)
CPT/HCPCS: 72197; A9576

== ENCOUNTER → 2023-11-19 | Outpatient (REF) | payer OTHER ==
[~2023-11-19] MED LIST changes: +CEFD1CAP9 PO; -CEFD300C42 PO; -PROHANCE 279.3MG/ML 15ML VIAL As Ordered ONE; -PROHANCE 279.3MG/ML 5ML VIAL As Ordered ONE
== END ==
LOC: M SFHCPLAZ 10:11
PROVIDERS: ATTEND Physician Assistant
DX: J02.9 Acute pharyngitis, unspecified (principal); R52 Pain, unspecified

== ENCOUNTER → 2024-02-04 | Outpatient (REF) | payer OTHER | LOC: M SFHCPLAZ 12:44 | PROVIDERS: ATTEND Family Medicine | DX: R73.01 Impaired fasting glucose (principal); E55.9 Vitamin D deficiency, unspecified; Z53.9 Procedure and treatment not carried out, unspecified reason ==

== ENCOUNTER → 2024-04-06 | Outpatient (REF) | payer OTHER | LOC: M SFHCPLAZ 08:42 | PROVIDERS: ATTEND Family Medicine | DX: Z53.9 Procedure and treatment not carried out, unspecified reason (principal) ==

== ENCOUNTER → 2024-05-06 | Outpatient (REF) | payer OTHER, BC ==
[2024-05-06 17:37] LABS: APPEARANCE, URINE CLEAR (CLEAR); BACTERIA, URINE AUTO NEGATIVE (NEGATIVE); BILIRUBIN, URINE AUTO NEGATIVE (NEGATIVE); BLOOD, URINE BLOOD NEGATIVE (NEGATIVE); COLOR, URINE STRAW (YELLOW); GLUCOSE, URINE (UA) AUTO NEGATIVE (NEGATIVE); KETONE, URINE AUTO NEGATIVE (NEGATIVE); LEUKOCYTE ESTERASE, URINE AUTO NEGATIVE (NEGATIVE); NITRITE, URINE AUTO NEGATIVE (NEGATIVE); PROTEIN, URINE AUTO NEGATIVE (NEGATIVE); RBC, URINE AUTO 0 /HPF (0-3); SPECIFIC GRAVITY URINE AUTO 1.002 (1.002-1.035); SQUAMOUS EPITHELIAL CELL UR AU 0 /HPF (0-6); UROBILINOGEN, URINE AUTO 0.2 mg/dL (0.0-2.0); WBC, URINE AUTO 0 /HPF (0-3)
== END ==
LOC: M LAB REF 17:27
PROVIDERS: ATTEND Physician Assistant Medical
DX: N39.0 Urinary tract infection, site not specified (principal)

== ENCOUNTER → 2024-06-22 | Outpatient (REF) | payer OTHER | LOC: M SFHCPLAZ 19:19 | PROVIDERS: ATTEND Family Medicine | DX: R73.01 Impaired fasting glucose (principal); E55.9 Vitamin D deficiency, unspecified; E53.8 Deficiency of other specified B group vitamins; Z53.9 Procedure and treatment not carried out, unspecified reason ==

== ENCOUNTER → 2024-07-25 | Outpatient (REF) | payer OTHER | LOC: M SFHCPLAZ 17:05 | DX: E55.9 Vitamin D deficiency, unspecified (principal); Z53.9 Procedure and treatment not carried out, unspecified reason ==

== ENCOUNTER 2024-11-25 08:33 | Emergency (ER) | payer OTHER ==
[~2024-11-25] VITALS: Ht 177.8 cm; Wt 134.0 kg
[2024-11-25] MEDS: KETOROLAC 30 MG/ML 1ML VIAL IM ONE (09:18)
[2024-11-25] MEDS: LIDOCAINE 5% (LIDODERM) PATCH TD ONE (09:18)
[2024-11-25] MEDS: diazePAM 5MG TABLET PO ONE (09:18)
[2024-11-25] MEDS ORDERED: LIDO5DIS41 TD (10:31)
[2024-11-25] MEDS ORDERED: NAPR-837 PO (10:31)
[2024-11-25] MEDS ORDERED: METH-1164 PO (10:31)
[2024-11-25 10:38] VITALS: BP 133/80; TEMP 97; O2SAT 99
== END 2024-11-25 10:41 | disposition home or self-care (01) ==
LOC: M ED 08:33
DX: M43.06 Spondylolysis, lumbar region (principal); Z88.0 Allergy status to penicillin; Z88.1 Allergy status to other antibiotic agents; J45.909 Unspecified asthma, uncomplicated; Z79.899 Other long term (current) drug therapy
CPT/HCPCS: 72110; 96372; 99283; J1885

== ENCOUNTER → 2025-05-20 | Outpatient (REF) | payer OTHER ==
[~2025-05-20] MED LIST changes: +LIDO1ADH93 TD; +METH-1164 PO; +NAPR-837 PO
[2025-05-20 11:20] LABS: APPEARANCE, URINE HAZY (CLEAR); BACTERIA, URINE AUTO NEGATIVE (NEGATIVE); BILIRUBIN, URINE AUTO NEGATIVE (NEGATIVE); BLOOD, URINE BLOOD NEGATIVE (NEGATIVE); GLUCOSE, URINE (UA) AUTO NEGATIVE (NEGATIVE); KETONE, URINE AUTO NEGATIVE (NEGATIVE); LEUKOCYTE ESTERASE, URINE AUTO 2+ (NEGATIVE); MUCUS, URINE SMALL (NEGATIVE); NITRITE, URINE AUTO NEGATIVE (NEGATIVE); PROTEIN, URINE AUTO NEGATIVE (NEGATIVE); RBC, URINE AUTO 9 /HPF (0-3); SPECIFIC GRAVITY URINE AUTO 1.016 (1.002-1.035); SQUAMOUS EPITHELIAL CELL UR AU 0 /HPF (0-6); UROBILINOGEN, URINE AUTO 0.2 mg/dL (0.0-2.0); WBC, URINE AUTO 114 /HPF (0-3)
== END ==
LOC: M LAB REF 09:19
PROVIDERS: ATTEND Physician Assistant
DX: N39.0 Urinary tract infection, site not specified (principal)

== ENCOUNTER 2025-07-12 07:31 | Day surgery (SDC) | payer OTHER ==
[~2025-07-12] VITALS: Ht 177.8 cm; Wt 121.6 kg
[~2025-07-12 07:31] MED LIST changes: +ALEN70TA82 PO; +CELE0.09 PO; +ESTR10TA VG; +PANT20TA6 PO; +SEMA1PEN2 SC
[2025-07-12] MEDS ORDERED: LIDOCAINE 2% 100 MG/5 ML SDV (FOR ANES.) IV ONE (07:32)
[2025-07-12 09:11] VITALS: TEMP 96.5
[2025-07-12 09:25] VITALS: BP 117/58; O2SAT 95
== END 2025-07-12 09:29 | disposition home or self-care (01) ==
LOC: M OPP 07:31
PROVIDERS: ATTEND Internal Medicine Gastroenterology
DX: K63.5 Polyp of colon (principal); Z86.0101 Personal history of adenomatous and serrated colon polyps; G47.30 Sleep apnea, unspecified; Z88.0 Allergy status to penicillin; Z88.8 Allergy status to other drugs, medicaments and biological substances; Z79.51 Long term (current) use of inhaled steroids; Z79.85 Long-term (current) use of injectable non-insulin antidiabetic drugs; Z79.899 Other long term (current) drug therapy; J45.909 Unspecified asthma, uncomplicated